=== PATIENT | female | born 1990 ===

== ENCOUNTER 2020-05-03 03:32 | Inpatient (IN) | payer SELFPAY ==
[2020-05-03] MEDS ORDERED: ePHEDrine SULFATE 50 MG/1 ML INJ IV PRN ×2 (05:22→05:23)
[2020-05-03] MEDS ORDERED: TERBUTALINE 1 MG/1 ML INJ SUB-Q PRN (05:23)
[2020-05-03] MEDS ORDERED: MINERAL OIL 30 ML ORAL LIQD PO PRN (05:23)
[2020-05-03] MEDS ORDERED: LIDOCAINE (2%) 20 MG/1 ML VIAL 20 ML MDV INFILTRATI ONE (05:23)
[2020-05-03] MEDS ORDERED: diphenhydrAMINE 25 MG CAP PO PRN (05:24)
[2020-05-03] MEDS ORDERED: LANOLIN/ZINC/DIMETHICONE (LANSINOH) 7 GM TP PRN (05:24)
[2020-05-03] MEDS ORDERED: ONDANSETRON 4 MG/2 ML INJ IV PRN (05:24)
[2020-05-03] MEDS ORDERED: WITCH HAZEL/ GLYCERIN PAD TP PRN (05:24)
[2020-05-03] MEDS ORDERED: PROMETHAZINE 25 MG RECT SUPP PR PRN (05:24)
[2020-05-03] MEDS ORDERED: LACTATED RINGERS 1,000 ML IV SCH ×2 (05:30)
--- NOTE | 2020-05-03 05:30 | History and Physical Report ---
History of Present Illness Date of examination: 05/03/20 Date of admission: 05/03/20 03:32 Chief complaint: intense labor pains History of present illness: States she got care at [facility] and had a uncomplicated course. Past History Past Medical History: no pertinent history Past Surgical History: no surgical history Social history: no significant social history - Obstetrical History Expected Date of Delivery: 05/07/20 Actual Gestation: 39 Week(s) 3 Day(s) : 2 Para: 1 Hx # Term Pregnancies: 1 Number of Living Children: 1 Medications and Allergies Allergies Allergy/AdvReac Type Severity Reaction Status Date / Time No Known Allergies Allergy Verified 05/03/20 05:25 Home Medications Medication Instructions Recorded Confirmed Last Taken Type No Known Home Medications [No 05/03/20 05/03/20 Unknown History Reported Home Medications] Active Meds: Active Medications Ephedrine Sulfate (Ephedrine Sulfate 50 Mg/1 Ml Inj) 10 mg IV Q2M PRN PRN Reason: Hypotension Lactated Ringer's (Lactated Ringers) 1,000 mls @ 125 mls/hr IV DIRECT JANE Oxytocin/Sodium Chloride (Pitocin/Ns 30 Unit/500ml) 30 units in 500 mls @ 2 mls/hr IV TITR JANE; Protocol Lidocaine (Lidocaine (2%) 20 Mg/1 Ml Vial 20 Ml Mdv) 20 ml INFILTRATI ONCE ONE Stop: 05/03/20 05:24 Mineral Oil (Mineral Oil 30 Ml Oral Liqd) 30 ml PO QHS PRN PRN Reason: Constipation Terbutaline Sulfate (Terbutaline 1 Mg/1 Ml Inj) 0.25 mg SUB-Q ONCE PRN PRN Reason: Hyperstimulation/Hypertonicity Review of Systems All systems: negative - Vital Signs Vital signs: Vital Signs Pulse BP 91 H 134/88 05/03/20 04:09 05/03/20 04:09 Temp Pulse Resp BP Pulse Ox 99.5 F 91 H 12 134/88 05/03/20 04:14 05/03/20 04:14 05/03/20 04:14 05/03/20 04:14 - Physical Exam Breasts: Cardiovascular: Regular rate, Normal S1, Normal S2 Abdomen: Positive: normal appearance, soft, normal bowel sounds. Negative: distention, tenderness Vulva: both: normal Vagina: Positive: normal moisture. Negative: discharge Cervix: Negative: lesion, discharge Uterus: Positive: normal size, normal contour Adnexa: both: normal Anus/Rectum: Positive: normal perianal skin, heme negative. Negative: rectal mass, hemorrhoids Extremities: Deep Tendon Reflex Grade: Normal +2 Results All other labs normal. Assessment and Plan A: IUP @ 39 3/7 Weeks Active Labor GBS Unknown P: Admit to L&D Per Routine orders Precipitious Vaginal Delivery upon Arrival to L&D
--- NOTE | 2020-05-03 05:31 | Procedure Note ---
OB Delivery Note - Delivery Date of Delivery: 05/03/20 (0333) Surgeon: NEELIMA GARNER Estimated blood loss: 200cc - Vaginal Delivery presentation: vertex Delivery position: OA Intrapartum events: precipitous labor- <3hr Delivery induction: none Delivery monitor: none Route of delivery: Delivery placenta: spontaneous Episiotomy: none Delivery laceration: none Anesthesia: none Delivery comments: Precipitious vaginal delivery attended by RN upon arrival to L&D. - Infant A at 1 minute: 8 at 5 minutes: 9 Gender: Female (6'2)
[2020-05-03] MEDS ORDERED: OXYTOCIN DRIP 30 UNITS/500 ML BAG IV SCH (06:00)
[2020-05-03 06:46] LABS: Hemoglobin 13.4 gm/dl (10.1-14.3); Mean Corpuscular HGB Conc 33 % (30-34); Mean Corpuscular Volume 87 fl (79-97); Platelet Count 260 K/mm3 (140-440); Red Blood Count 4.74 M/mm3 (3.65-5.03); Red Cell Distribution Width 13.9 % (13.2-15.2)
[2020-05-03] MEDS: IBUPROFEN 600 MG TAB PO SCH ×3 (08:59→23:25)
[2020-05-03 15:59] LABS: Hematocrit 35.4 % (30.3-42.9); Hemoglobin 11.8 gm/dl (10.1-14.3)
[2020-05-03] MEDS ORDERED: hydrALAZINE 20 MG/1 ML INJ IV ONE (15:59)
[2020-05-04] MEDS: IBUPROFEN 600 MG TAB PO SCH ×3 (00:25→22:23)
--- NOTE | 2020-05-04 17:38 | Progress Note ---
Assessment and Plan PPD#1 doing with elevated BP , asymptomatic COVID 19 1. Will check pih labs and start labetalol 100mg bid 2. Maintain isolation with covid 19 3. Routine care Subjective Date of service: 05/04/20 Principal diagnosis: , PPD#1, Covid positive asymptomatic Interval history: pt has no complaints just lying in bed and FOB to bedside. Pt denies pain and vaginal bleeding minimal. Denies dysuria. pt denies headache. Baby in room with patient Objective - Constitutional Vitals: Vital Signs - 12hr 05/04/20 09:16 Temperature 98.5 F Pulse Rate 84 Respiratory 18 Rate Blood Pressure 141/99 [Right] O2 Sat by Pulse 99 Oximetry General appearance: Present: no acute distress - Respiratory Respiratory effort: normal - Breasts Breasts: normal - Cardiovascular Rhythm: regular Extremities: no ischemia - Genitourinary Female genitourinary: other (uterine fundus firm 2cm below the umbilicus) - Labs CBC & Chem 7: 05/03/20 15:36 Medications & Allergies - Medications Allergies/Adverse Reactions: Allergies No Known Allergies Allergy (Verified 05/03/20 05:25) Home Medications: Home Medications Medication Instructions Recorded Confirmed Last Taken Type No Known Home Medications [No 05/03/20 05/03/20 Unknown History Reported Home Medications] Active Medications: Generic Name Dose Route Start Last Admin Trade Name Freq PRN Reason Stop Dose Admin Bisacodyl 10 mg 05/03/20 05:24 Bisacodyl 10 Mg Rect Supp HI BID PRN Constipation Diphenhydramine HCl 25 mg 05/03/20 05:24 Diphenhydramine 25 Mg Cap PO Q6H PRN Itching Oxytocin/Sodium Chloride 30 units in 500 mls @ 2 mls/hr 05/03/20 06:00 Pitocin/Ns 30 Unit/500ml IV TITR JANE Protocol Ibuprofen 600 mg 05/03/20 06:00 05/04/20 06:10 Ibuprofen 600 Mg Tab PO Not Given Q6H JANE Labetalol HCl 100 mg 05/04/20 22:00 Labetalol 100 Mg Tab PO BID JANE Mineral Oil 30 ml 05/03/20 05:23 Mineral Oil 30 Ml Oral Liqd PO QHS PRN Constipation Multi-Ingredient Ointment 1 applic 05/03/20 05:24 05/03/20 13:53 Lanolin/Zinc/Dimethicone (Lansinoh) 7 Gm TP 1 applic PRN PRN Administration Sore Nipples Ondansetron HCl 4 mg 05/03/20 05:24 Ondansetron 4 Mg/2 Ml Inj IV Q8H PRN Nausea And Vomiting Promethazine HCl 25 mg 05/03/20 05:24 Promethazine 25 Mg Rect Supp HI Q6H PRN Nausea And Vomiting Sodium Chloride 10 ml 05/03/20 06:00 Sodium Chloride 0.9% 10 Ml Flush Syringe IV PRN PRN LINE FLUSH Terbutaline Sulfate 0.25 mg 05/03/20 05:23 Terbutaline 1 Mg/1 Ml Inj SUB-Q ONCE PRN Hyperstimulation/Hypertonicity Witch Marcela/Glycerin 1 each 05/03/20 05:24 Witch Marcela/ Glycerin Pad TP PRN PRN Hemorrhoid/cleansing/soothing
[2020-05-04 18:43] LABS: Basophils # (Auto) 0.1 K/mm3 (0.0-0.1); Basophils % (Auto) 0.5 % (0.0-1.8); Eosinophils # (Auto) 0.1 K/mm3 (0.0-0.4); Hematocrit 35.1 % (30.3-42.9); Hemoglobin 11.9 gm/dl (10.1-14.3); Lymphocytes % (Auto) 18.6 % (13.4-35.0); Mean Corpuscular HGB Conc 34 % (30-34); Mean Corpuscular Volume 86 fl (79-97); Monocytes # (Auto) 0.8 K/mm3 (0.0-0.8); Monocytes % (Auto) 7.4 % (0.0-7.3); Platelet Count 207 K/mm3 (140-440); Red Blood Count 4.08 M/mm3 (3.65-5.03); Red Cell Distribution Width 14.1 % (13.2-15.2)
[2020-05-04 18:57] LABS: Alanine Aminotransferase 11 units/L (7-56); Albumin 3.1 g/dL (3.9-5); BUN/Creatinine Ratio 13; Blood Urea Nitrogen 15 mg/dL (7-17); Hemolysis Index 7
[2020-05-05] MEDS: IBUPROFEN 600 MG TAB PO SCH ×2 (01:59→08:24)
--- NOTE | 2020-05-05 12:02 | Progress Note ---
Assessment and Plan A: day 2 S/P . Chronic hypertension, taking oral Labetalol. Asymptomatic coronavirus positive. Elevated creatinine. P: Medical consult (pending). Continue oral Labetalol. Self isolate, coronavirus precautions. Subjective - Subjective Date of service: 05/05/20 Principal diagnosis: , PPD#2, Covid positive asymptomatic; chronic hypertension Interval history: day 2 S/P . Chronic hypertension on oral Labetalol. Creatinine of 1.2. Asymptomatic coronavirus positive. Medical hospitalist consult has been ordered. Patient denies headache, chest pain, cough, or shortness of breath. Patient reports: appetite normal, voiding normally, pain well controlled, flatus, ambulating normally, no dizzy ambulation, no nauseated : doing well Objective - Vital Signs Latest vital signs: Vital Signs Temp Pulse Resp BP BP Pulse Ox 05/05/20 08:23 98.2 F 62 18 157/93 99 05/05/20 08:22 62 157/93 05/05/20 05:00 164/94 05/05/20 01:30 98.4 F 70 18 153/95 97 05/04/20 22:22 86 150/90 05/04/20 18:32 98.2 F 85 18 132/75 99 Intake and Output 05/04/20 05/05/20 05/05/20 23:59 07:59 15:59 Intake Total 1320 120 1 Balance 1320 120 1 Intake: Oral 600 120 1 Intake, Free Water 720 Other: Total, Intake Amount 120 120 1 # Voids Void 4 1 1 - Exam Cardiovascular: Present: Regular rate Lungs: Present: Clear to auscultation Abdomen: Present: normal appearance, soft. Absent: distention, tenderness, guarding, rigidity Uterus: Present: normal, firm, fundal height below umbilicus. Absent: bogginess, tenderness Extremities: Present: normal. Absent: tenderness, edema - Labs Labs: Abnormal lab results 05/04/20 05/04/20 Range/Units 18:22 18:22 Hendry % (Auto) 7.4 H (0.0-7.3) % Seg Neutrophils % 72.5 H (40.0-70.0) % Seg Neutrophils # 7.8 H (1.8-7.7) K/mm3 Sodium 136 L (137-145) mmol/L Carbon Dioxide 19 L (22-30) mmol/L Glucose 132 H (65-100) mg/dL Total Protein 5.9 L (6.3-8.2) g/dL Albumin 3.1 L (3.9-5) g/dL
--- NOTE | 2020-05-05 19:26 | Event Note ---
Date: 05/05/20 BPs elevated. Increased Labetalol dose to 200 mg po BID. Transfer orders to return patient to L&D and start Magnesium Sulfate. Repeat preeclamptic labs ordered. Notified patient's mother baby nurse and L&D charge nurse. Spoke with patient re: this plan of care. Consulted with Dr. Beard re: all of the above and he states he is in agreement with POC. Still awaiting hospitalist consult (ordered by Dr. Nice last night). Nurse states she will follow up re: this.
[2020-05-05] MEDS ORDERED: MAGNESIUM SULFATE 40GM/1000ML 40 GM/1,000 ML BAG IV SCH (20:00)
[2020-05-05 20:15] LABS: Alanine Aminotransferase 13 units/L (7-56); Albumin 3.4 g/dL (3.9-5); BUN/Creatinine Ratio 18; Blood Urea Nitrogen 18 mg/dL (7-17); Calcium 9.1 mg/dL (8.4-10.2); Hemolysis Index 9; Uric Acid 5.7 mg/dL (3.5-7.6)
[2020-05-05] MEDS ORDERED: MAGNESIUM SULFATE 4 GM/100 ML BAG IV ONE (20:17)
[2020-05-05] MEDS ORDERED: LACTATED RINGERS 1,000 ML ONE (20:49)
[2020-05-05] MEDS: hydrALAZINE 20 MG/1 ML INJ IV PRN (21:43)
[2020-05-06] MEDS: HYDROcodone/ACETAMINOPHEN 5-325 MG TAB PO PRN ×3 (08:46→23:41)
[2020-05-06] MEDS ORDERED: LACTATED RINGERS 1,000 ML ONE ×2 (10:56→23:38)
--- NOTE | 2020-05-06 14:15 | Progress Note ---
Assessment and Plan A: day 3 S/P . Chronic hypertension, on oral Labetalol; BPs controlled. Preeclampsia with severe features. Coronavirus positive, asymptomatic. P: Hospitalist MD to see patient as ordered (creatinine of 1.2). Continue magnesium sulfate to complete 24 hours. Continue Labetalol 200 mg po BID for BP control. Continue self isolation for coronavirus positive. Subjective - Subjective Date of service: 05/06/20 Principal diagnosis: , PPD#3, Covid positive asymptomatic; chronic hypertension; preeclampsia Interval history: day 3 S/P . Chronic hypertension on oral Labetalol. Preeclampsia with severe features; on IV magnesium sulfate. Creatinine of 1.2. Asymptomatic coronavirus positive. Medical hospitalist consult has been ordered. Patient reports headache; denies chest pain, cough, or shortness of breath. Patient reports: appetite normal, pain well controlled, flatus, no nauseated : doing well Objective - Vital Signs Latest vital signs: Vital Signs Temp Pulse Resp BP BP Pulse Ox 05/06/20 14:10 15 05/06/20 14:08 84 99 05/06/20 14:03 82 100 05/06/20 13:58 87 100 05/06/20 13:53 77 100 05/06/20 13:48 86 100 05/06/20 13:43 82 129/83 100 05/06/20 13:38 86 99 05/06/20 13:33 87 99 05/06/20 13:28 91 H 99 05/06/20 13:23 87 99 05/06/20 13:18 85 98 05/06/20 13:13 82 118/76 98 05/06/20 13:08 84 98 05/06/20 13:03 83 99 05/06/20 12:58 86 99 05/06/20 12:53 86 99 05/06/20 12:48 84 99 05/06/20 12:43 84 123/76 99 05/06/20 12:38 84 99 05/06/20 12:33 89 99 05/06/20 12:28 84 98 05/06/20 12:23 85 99 05/06/20 12:18 84 99 05/06/20 12:13 82 115/69 98 05/06/20 12:08 88 98 05/06/20 12:03 86 98 02/21/21 11:58 85 98 02/21/21 11:53 86 98 02/21/21 11:48 90 97 02/21/21 11:43 80 112/65 98 02/21/21 11:38 83 97 02/21/21 11:33 84 97 02/21/21 11:28 86 97 02/21/21 11:23 85 97 02/21/21 11:18 88 97 02/21/21 11:13 85 115/68 98 02/21/21 11:08 86 97 02/21 11:03 86 98 02/21/21 10:58 85 98 0221/21 10:53 88 98 02/21/21 10:48 89 98 0221/21 10:43 86 116/66 98 0221/21 10:38 89 97 02/21 10:33 89 97 02/21 10:28 88 97 02/21 10:23 86 97 02/21 10:18 88 97 02/ 10:13 87 118/69 97 02/21 10:08 88 97 02/21 10:03 87 98 02/21 09:58 88 98 02/21 09:53 84 99 02/21 09:48 88 99 02/21 09:45 91 H 127/77 02/21 09:43 91 H 127/77 99 02/21 09:38 90 99 02/21 09:33 99 H 98 0221/21 09:28 101 H 98 02/21 09:23 102 H 98 02/21 09:18 101 H 99 0221/21 09:13 100 H 141/89 99 0221/21 09:08 106 H 99 02/21 09:03 98 H 99 0221/21 08:58 101 H 100 02/21 08:53 93 H 98 0221/21 08:48 96 H 98 0221/21 08:43 83 136/90 99 0221/21 08:38 94 H 99 0221/21 08:33 93 H 98 0221/21 08:32 96 H 94 0221/21 08:30 98.1 F 16 02/21 08:28 98 H 96 02/21/21 08:23 92 H 99 05/06/20 08:18 87 99 05/06/20 08:14 91 H 157/96 05/06/20 08:13 93 H 99 05/06/20 08:08 89 100 05/06/20 08:03 85 99 05/06/20 07:58 83 99 05/06/20 07:53 78 100 05/06/20 07:48 82 99 05/06/20 07:44 80 153/95 05/06/20 07:43 81 99 05/06/20 07:38 85 100 05/06/20 07:33 82 99 05/06/20 07:28 83 100 05/06/20 07:23 83 100 05/06/20 07:18 83 100 05/06/20 07:13 90 136/93 98 05/06/20 07:08 91 H 99 05/06/20 07:03 89 100 05/06/20 06:58 86 99 05/06/20 06:53 94 H 99 05/06/20 06:48 83 98 05/06/20 06:43 91 H 135/87 98 05/06/20 06:38 91 H 97 05/06/20 06:33 94 H 97 05/06/20 06:28 95 H 98 05/06/20 06:23 92 H 98 05/06/20 06:18 88 98 05/06/20 06:13 85 135/79 98 05/06/20 06:08 83 98 05/06/20 06:03 86 98 05/06/20 05:58 84 98 05/06/20 05:53 90 99 05/06/20 05:48 87 98 05/06/20 05:44 97 H 135/81 05/06/20 05:43 94 H 99 05/06/20 05:38 86 98 05/06/20 05:33 88 98 05/06/20 05:28 87 98 05/06/20 05:23 83 98 05/06/20 05:18 85 99 05/06/20 05:13 82 130/77 99 05/06/20 05:08 82 100 05/06/20 05:03 76 100 05/06/20 04:58 79 100 05/06/20 04:53 88 99 05/06/20 04:48 91 H 98 05/06/20 04:43 89 134/81 99 05/06/20 04:38 84 97 05/06/20 04:33 87 100 02 04:28 86 100 05/06/20 04:23 92 H 98 02 04:18 83 99 05/06/20 04:13 80 131/85 99 02 04:08 83 99 05/06/20 04:03 79 99 02 03:58 79 100 05/06/20 03:53 78 99 05/06/20 03:48 83 98 05/06/20 03:44 86 130/86 05/06/20 03:43 87 99 05/06/20 03:38 93 H 99 05/06/20 03:33 94 H 97 05/06/20 03:28 98 H 96 05/06/20 03:23 97 H 97 05/06/20 03:18 89 97 05/06/20 03:13 85 118/70 98 05/06/20 03:08 88 97 05/06/20 03:03 88 97 05/06/20 02:58 85 97 05/06/20 02:53 82 98 05/06/20 02:48 82 98 05/06/20 02:43 79 120/76 98 05/06/20 02:38 83 99 05/06/20 02:33 85 99 05/06/20 02:28 81 99 05/06/20 02:23 82 99 05/06/20 02:18 82 99 05/06/20 02:13 79 135/87 100 05/06/20 02:08 85 99 05/06/20 02:03 87 99 05/06/20 01:58 90 98 05/06/20 01:53 86 99 05/06/20 01:48 81 99 05/06/20 01:43 79 128/80 99 02 01:38 85 99 02 01:33 92 H 99 05/06/20 01:28 88 99 05/06/20 01:23 97 H 99 05/06/20 01:18 93 H 97 05/06/20 01:13 96 H 127/74 97 05/06/20 01:08 90 97 05/06/20 01:03 93 H 97 02/21/21 00:58 90 98 02 00:53 91 H 98 02/21 00:48 89 98 0221 00:43 84 127/78 99 0221 00:38 91 H 99 02 00:33 91 H 99 02/21 00:28 89 99 02 00:23 95 H 98 02 00:18 94 H 99 02 00:13 93 H 139/90 98 02 00:08 86 99 02 00:03 85 99 022021 23:58 91 H 98 0220/21 23:53 94 H 99 0220/21 23:48 92 H 99 022021 23:43 87 141/88 99 022021 23:38 89 99 0220/21 23:33 93 H 99 0221 23:28 89 99 0220/21 23:23 87 99 022021 23:18 91 H 99 0220/21 23:13 83 134/83 99 0220/21 23:08 94 H 99 022021 23:03 91 H 98 0220/21 22:58 89 99 0220/21 22:53 85 99 0220/21 22:48 104 H 99 0220/21 22:44 87 164/96 0220/21 22:43 91 H 99 022021 22:38 101 H 99 0220/21 22:33 94 H 99 022021 22:28 93 H 99 0220/21 22:23 89 99 0220/21 22:18 101 H 99 0220/21 22:13 95 H 99 0220/21 22:12 93 H 128/85 0220/21 22:08 98 H 98 0220/21 22:07 95 H 142/83 0220/21 22:03 95 H 99 0220/21 22:02 95 H 145/87 0220/21 22:00 98.3 F 16 0220/21 21:58 95 H 145/89 99 0220/21 21:53 98 H 99 0220/21 21:52 97 H 164/101 0220/21 21:48 91 H 160/98 98 0220/21 21:43 81 174/104 99 05/05/20 21:31 73 172/104 05/05/20 16:50 98 F 72 18 148/96 99 Intake and Output 05/05/20 05/06/20 05/06/20 23:59 07:59 15:59 Intake Total 840 2020 Output Total 900 2500 1000 Balance -60 -2500 1020 Intake: Oral 480 2020 Intake, Free Water 360 Output: Urine 900 2500 1000 Indwelling Catheter 900 2500 1000 Other: Total, Intake Amount 480 480 Total, Output Amount 600 500 150 # Voids Void 2 - Exam Cardiovascular: Present: Regular rate Lungs: Present: Clear to auscultation Abdomen: Present: normal appearance, soft, normal bowel sounds. Absent: distention, tenderness, guarding, rigidity Uterus: Present: normal, firm, fundal height below umbilicus. Absent: katiana gginess, tenderness Extremities: Present: normal. Absent: tenderness - Labs Labs: Abnormal lab results 05/05/20 05/05/20 05/06/20 Range/Units 19:44 19:44 02:05 BUN 18 H (7-17) mg/dL Magnesium 6.30 H (1.7-2.3) mg/dL Lactate Dehydrogenase 283 H (91-180) units/L Albumin 3.4 L (3.9-5) g/dL 05/06/20 Range/Units 07:52 BUN (7-17) mg/dL Magnesium 7.90 H (1.7-2.3) mg/dL Lactate Dehydrogenase (91-180) units/L Albumin (3.9-5) g/dL
[2020-05-07] MEDS: hydrALAZINE 20 MG/1 ML INJ IV PRN (04:23)
[2020-05-07] MEDS ORDERED: LACTATED RINGERS 1,000 ML IV SCH (07:30)
[2020-05-07 09:05] LABS: Hematocrit 33.6 % (30.3-42.9); Hemoglobin 11.1 gm/dl (10.1-14.3); Mean Corpuscular HGB Conc 33 % (30-34); Mean Corpuscular Volume 86 fl (79-97); Platelet Count 211 K/mm3 (140-440); Red Blood Count 3.92 M/mm3 (3.65-5.03); Red Cell Distribution Width 14.5 % (13.2-15.2)
[2020-05-07 09:22] LABS: Alanine Aminotransferase 30 units/L (7-56); Albumin 2.9 g/dL (3.9-5); Blood Urea Nitrogen 12 mg/dL (7-17); Calcium 7.9 mg/dL (8.4-10.2); Hemolysis Index 16
[2020-05-07 09:23] LABS: BUN/Creatinine Ratio 17
--- NOTE | 2020-05-07 10:21 | Progress Note ---
Assessment and Plan A: S/P Chronic htn with severe preeclampsia Pos Covid 19 P: Continue routine pp care Continue Labetalol as prescribed Procardia 60XL QD Covid 19 prec Pre eclampsia labs repeated today by previous provider Consulted Dr Tamez Subjective - Subjective Date of service: 05/07/20 Principal diagnosis: , PPD#3, Covid positive asymptomatic; chronic hypertension; preeclampsia Patient reports: appetite normal, pain well controlled, other (song in place draining cl yell urine.) : doing well, other (c/o headache) Objective - Vital Signs Latest vital signs: Vital Signs Temp Pulse Resp BP BP Pulse Ox 05/07/20 10:14 87 167/85 05/07/20 10:13 101 H 99 05/07/20 10:08 96 H 99 05/07/20 10:03 94 H 98 05/07/20 10:00 99.6 F 18 05/07/20 09:58 89 98 05/07/20 09:53 88 99 05/07/20 09:48 68 99 05/07/20 09:44 64 142/79 05/07/20 09:43 75 98 05/07/20 09:38 76 98 05/07/20 09:33 81 97 05/07/20 09:28 67 97 05/07/20 09:23 69 98 05/07/20 09:18 68 98 05/07/20 09:14 68 147/86 05/07/20 09:13 79 98 05/07/20 09:08 75 98 05/07/20 09:03 70 99 05/07/20 08:58 69 99 05/07/20 08:53 83 98 05/07/20 08:48 71 99 05/07/20 08:44 77 158/76 05/07/20 08:43 71 98 05/07/20 08:38 75 98 05/07/20 08:33 74 97 05/07/20 08:28 75 98 05/07/20 08:23 68 98 05/07/20 08:18 72 98 05/07/20 08:14 71 136/69 05/07/20 08:13 79 98 05/07/20 08:08 82 98 05/07/20 08:03 80 98 05/07/20 07:58 74 97 05/07/20 07:53 66 97 02/22/21 07:48 64 98 0222/21 07:44 73 148/70 0222/21 07:43 79 98 0222/21 07:38 67 98 0222/21 07:33 84 98 0222/21 07:28 69 98 0222/21 07:23 69 98 05/07/21 07:18 64 98 0222/21 07:14 70 130/70 0222/21 07:13 67 98 02/21 07:08 69 98 02/21 07:03 69 99 0222/21 06:58 67 99 0222/21 06:53 74 99 0222/21 06:48 68 99 02/21 06:44 75 171/94 05/07/21 06:43 77 99 02/21 06:38 72 99 02/21 06:33 77 99 05/07/21 06:28 89 97 05/07/21 06:23 91 H 98 05/07/ 06:18 72 98 05/07/21 06:14 78 154/95 02/21 06:13 81 98 02/21 06:08 76 98 0222/21 06:03 77 97 02/21 05:58 75 97 02/21 05:53 76 97 05/07/21 05:48 80 98 05/07/21 05:44 81 152/83 05/07/21 05:43 81 98 0222/21 05:38 75 97 0222/21 05:33 79 97 0222/21 05:28 79 97 0222/21 05:23 79 98 0222/21 05:18 93 H 98 05/07/21 05:14 81 144/83 02/21 05:13 84 98 0222/21 05:08 72 98 0222/21 05:03 73 98 0222/21 04:58 75 98 0222/21 04:53 77 97 0222/21 04:48 75 98 0222/21 04:44 71 153/76 0222/21 04:43 72 98 0222/21 04:38 77 98 0222/21 04:33 74 98 0222/21 04:32 74 174/91 174/91 0222/21 04:28 72 98 02/21 04:23 72 167/98 99 05/07/21 04:18 65 99 02/21 04:13 70 167/98 99 05/07/20 04:09 98.4 F 65 18 167/100 05/07/21 04:08 65 99 02/ 04:07 71 167/100 05/07/ 04:05 67 184/105 05/07/20 04:03 71 100 05/07/20 03:58 72 98 02 03:53 69 98 05/07/ 03:48 74 98 02/ 03:44 69 154/84 05/07/ 03:43 74 97 05/07/ 03:38 70 98 05/07/ 03:33 72 97 05/07/ 03:28 73 97 05/07/ 03:23 75 97 05/07/ 03:18 74 97 05/07/20 03:14 77 151/84 05/07/20 03:13 81 97 05/07/20 03:08 70 97 05/07/20 03:03 75 97 05/07/20 02:58 81 97 05/07/ 02:53 84 97 05/07/ 02:48 72 97 05/07/20 02:44 80 154/87 05/07/20 02:43 82 97 05/07/ 02:38 71 98 05/07/ 02:33 75 97 05/07/ 02:28 71 97 05/07/20 02:23 75 98 05/07/20 02:18 89 98 05/07/20 02:14 71 147/83 21 02:13 73 98 05/07/ 02:08 73 98 02/ 02:03 78 98 02/21 01:58 74 98 22/21 01:53 77 98 22/21 01:48 79 99 0222/21 01:46 69 156/89 0222/21 01:44 68 160/85 22/21 01:43 73 98 0222/21 01:38 73 99 0222/21 01:33 78 99 0222/21 01:28 79 99 0222/21 01:23 79 98 0222/21 01:18 89 99 05/07/20 01:14 75 165/87 05/07/20 01:13 76 99 05/07/20 01:08 79 98 05/07/20 01:03 79 98 05/07/20 00:58 91 H 98 05/07/20 00:53 82 98 05/07/20 00:48 83 99 05/07/20 00:43 75 131/98 98 05/07/20 00:38 82 98 05/07/20 00:33 89 96 05/07/20 00:28 83 99 05/07/20 00:23 91 H 97 05/07/20 00:18 83 98 05/07/20 00:14 78 152/82 05/07/20 00:13 79 99 05/07/20 00:08 82 99 05/07/20 00:03 85 99 05/06/20 23:58 81 99 05/06/20 23:53 81 98 05/06/20 23:48 79 99 05/06/20 23:43 79 150/94 98 05/06/20 23:41 18 05/06/20 23:38 76 99 05/06/20 23:33 75 158/93 99 05/06/20 23:28 76 99 05/06/20 23:23 90 99 05/06/20 23:18 79 99 05/06/20 23:14 80 165/100 05/06/20 23:13 76 99 05/06/20 23:12 98.4 F 75 18 158/93 05/06/20 23:08 83 99 05/06/20 23:05 81 159/99 05/06/20 23:03 93 H 99 05/06/20 22:58 92 H 97 05/06/20 22:53 91 H 98 02 22:48 95 H 98 02 22:44 91 H 159/99 02 22:43 91 H 98 02 22:38 91 H 98 02 22:33 84 99 05/06/20 22:28 93 H 98 05/06/20 22:23 89 100 02 22:18 86 100 02 22:14 76 151/85 02 22:13 77 98 02/21/21 22:08 77 99 02/21/21 22:03 80 100 02/21/21 21:58 81 99 02/21/21 21:53 73 100 02/21/21 21:48 75 99 02/21/21 21:44 76 168/94 02/21/21 21:43 67 99 02/21/21 21:38 84 100 02/21/21 21:33 80 99 02/21/21 21:28 74 100 02/21/21 21:23 72 99 02/21/21 21:18 91 H 98 02/21/21 21:14 81 148/87 02/21/21 21:13 83 98 02/21/21 21:08 79 99 02/21/21 21:03 83 99 02/21/21 20:58 78 99 02/21/21 20:53 83 98 02/21/21 20:48 81 99 02/21/21 20:43 78 143/87 97 02/21/21 20:38 71 98 02/21/21 20:33 78 99 02/21/21 20:28 78 100 02/21/21 20:23 85 100 02/21/21 20:18 82 99 02/21/21 20:14 83 94 02/21/21 20:13 81 139/73 96 02/21/21 20:08 75 97 02/21/21 20:03 75 97 02/21/21 19:58 82 98 02/21/21 19:53 76 98 02/21/21 19:48 80 98 02/21/21 19:44 78 151/87 94 02/21/21 19:43 79 96 02/21/21 19:38 75 99 02/21/21 19:33 75 99 02/21/21 19:28 74 100 02/21/21 19:23 73 99 02/21/21 19:18 76 99 02/21/21 19:14 74 178/98 02/21/21 19:13 75 98 02/21/21 19:08 77 98 02/21/21 19:03 87 100 02/21/21 18:58 84 98 02/21/21 18:53 78 100 02/21/21 18:48 79 100 02/21/21 18:43 73 141/91 98 02/21/21 18:38 77 99 02/21/21 18:33 74 98 02/21/21 18:28 78 99 02 18:23 77 100 05/06/20 18:18 80 100 05/06/20 18:13 77 136/88 99 05/06/20 18:08 80 99 02 18:03 77 99 05/06/20 17:58 80 99 05/06/20 17:53 73 99 05/06/20 17:48 80 100 05/06/20 17:43 73 141/91 98 05/06/20 17:38 83 99 05/06/20 17:33 82 99 05/06/20 17:28 84 98 05/06/20 17:23 78 100 05/06/20 17:18 77 157/92 100 05/06/20 17:16 73 163/97 05/06/20 17:14 76 163/98 05/06/20 17:13 77 100 05/06/20 17:08 78 100 05/06/20 17:03 73 98 05/06/20 16:58 78 98 05/06/20 16:53 74 99 05/06/20 16:48 73 100 05/06/20 16:43 77 138/88 99 05/06/20 16:38 88 98 05/06/20 16:33 69 99 05/06/20 16:28 71 98 05/06/20 16:23 71 99 05/06/20 16:18 67 99 05/06/20 16:14 70 148/91 05/06/20 16:13 70 99 05/06/20 16:08 70 100 05/06/20 16:03 73 99 05/06/20 15:58 85 98 05/06/20 15:53 83 97 05/06/20 15:48 72 98 05/06/20 15:43 77 142/90 99 05/06/20 15:38 85 98 05/06/20 15:33 88 98 05/06/20 15:28 82 99 05/06/20 15:23 76 99 05/06/20 15:18 83 99 05/06/20 15:14 84 156/89 02 15:13 88 98 05/06/20 15:10 98.1 F 16 05/06/20 15:09 16 05/06/20 15:08 79 99 05/06/20 15:03 79 100 05/06/20 14:58 78 100 05/06/20 14:53 77 146/87 100 02 14:48 74 100 05/06/20 14:44 85 165/103 02 14:43 86 98 05/06/20 14:38 91 H 100 05/06/20 14:33 84 98 05/06/20 14:28 84 100 05/06/20 14:23 84 99 05/06/20 14:18 85 99 02 14:13 80 132/90 99 05/06/20 14:10 15 05/06/20 14:08 84 99 05/06/20 14:03 82 100 05/06/20 13:58 87 100 05/06/20 13:53 77 100 05/06/20 13:48 86 100 05/06/20 13:43 82 129/83 100 05/06/20 13:38 86 99 05/06/20 13:33 87 99 05/06/20 13:28 91 H 99 05/06/20 13:23 87 99 05/06/20 13:18 85 98 05/06/20 13:13 82 118/76 98 05/06/20 13:08 84 98 05/06/20 13:03 83 99 05/06/20 12:58 86 99 05/06/20 12:53 86 99 05/06/20 12:48 84 99 05/06/20 12:43 84 123/76 99 05/06/20 12:38 84 99 05/06/20 12:33 89 99 05/06/20 12:28 84 98 05/06/20 12:23 85 99 05/06/20 12:18 84 99 05/06/20 12:13 82 115/69 98 05/06/20 12:08 88 98 05/06/20 12:03 86 98 02 11:58 85 98 05/06/20 11:53 86 98 02 11:48 90 97 05/06/20 11:43 80 112/65 98 02 11:38 83 97 02 11:33 84 97 02 11:28 86 97 02 11:23 85 97 02 11:18 88 97 02/21 11:13 85 115/68 98 05/06/20 11:08 86 97 05/06/20 11:03 86 98 05/06/20 10:58 85 98 05/06/20 10:53 88 98 05/06/20 10:48 89 98 05/06/20 10:43 86 116/66 98 05/06/20 10:38 89 97 05/06/20 10:33 89 97 05/06/20 10:28 88 97 05/06/20 10:23 86 97 05/06/20 10:18 88 97 Intake and Output 05/06/20 05/07/20 05/07/20 22:59 06:59 14:59 Intake Total 2680 Output Total 1100 1750 Balance 1580 -1750 Intake: Oral 2680 Output: Urine 1100 1750 Indwelling Catheter 1100 1750 Other: Total, Intake Amount 640 Total, Output Amount 400 500 - Exam Breasts: Present: normal Abdomen: Present: normal appearance, soft, normal bowel sounds Vulva: both: normal Uterus: Present: normal, firm, fundal height below umbilicus Extremities: Present: normal - Labs Labs: Abnormal lab results 05/06/20 05/06/20 05/07/20 Range/Units 13:46 19:29 01:27 Calcium (8.4-10.2) mg/dL Magnesium 5.50 H 5.50 H 3.90 H (1.7-2.3) mg/dL Lactate Dehydrogenase (91-180) units/L Total Protein (6.3-8.2) g/dL Albumin (3.9-5) g/dL 05/07/20 Range/Units 08:46 Calcium 7.9 L (8.4-10.2) mg/dL Magnesium (1.7-2.3) mg/dL Lactate Dehydrogenase 266 H (91-180) units/L Total Protein 6.0 L (6.3-8.2) g/dL Albumin 2.9 L (3.9-5) g/dL
[2020-05-07] MEDS ORDERED: ACETAMINOPHEN 325 MG TAB PO SCH (11:00)
--- NOTE | 2020-05-07 11:32 | Event Note ---
Date: 05/07/20 consult redone today with Dr. Warner for refractory HTN and still with atypical presentation of preeclampsia and now creatinine normal. Pt remains with covid with c/o headache only. Dr. Warner states he will see her today.
[2020-05-07] MEDS: NIFEdipine XL 60 MG TAB PO SCH (11:48)
--- NOTE | 2020-05-07 12:04 | Consultation ---
History of Present Illness - Reason for Consult Consult date: 05/07/20 (Notified of consult on 05/07/20) Hypertension Requesting physician: NIGEL SULTANA - History of Present Illness 29 YO Female with Gestational HTN, Severe Preeclampsia S/P . Consult placed for HTN. Patient seen and evaluated in her room. Patient ambulating around her room and in no acute distress. Patient denies fever, chills, chest pain, palpitation, productive cough, skin rash, recent ill contacts. Patient denies history of hypertension. No reported nursing events. Past History Past Medical History: No medical history, other (Reviewed) Past Surgical History: No surgical history, Other (Reviewed) Social history: , lives with family. denies: smoking, alcohol abuse, prescription drug abuse Family history: no significant family history, other (Reviewed) Medications and Allergies Allergies Allergy/AdvReac Type Severity Reaction Status Date / Time No Known Allergies Allergy Verified 05/03/20 05:25 Home Medications Medication Instructions Recorded Confirmed Last Taken Type NIFEdipine [Nifedipine ER] 90 mg PO DAILY #30 tablet.er 05/07/20 Unknown Rx propranoloL [Inderal] 40 mg PO BID #60 tablet 05/07/20 Unknown Rx Active Meds: Active Medications Acetaminophen (Acetaminophen 325 Mg Tab) 650 mg PO ONCE JANE Stop: 05/07/20 15:00 Hydrocodone Bitart/Acetaminophen (Hydrocodone/Acetaminophen 5-325 Mg Tab) 1 each PO Q6H PRN PRN Reason: Pain, Moderate (4-6) Last Admin: 05/06/20 23:41 Dose: 1 each Documented by: Bisacodyl (Bisacodyl 10 Mg Rect Supp) 10 mg DE BID PRN PRN Reason: Constipation Diphenhydramine HCl (Diphenhydramine 25 Mg Cap) 25 mg PO Q6H PRN PRN Reason: Itching Hydralazine HCl (Hydralazine 20 Mg/1 Ml Inj) 5 mg IV Q30MIN PRN PRN Reason: Hypertension Last Admin: 05/07/20 04:23 Dose: 5 mg Documented by: Magnesium Sulfate (Magnesium Sulfate 40gm/1000ml) 40 gm in 1,000 mls @ 50 mls/hr IV DIRECT JANE Last Admin: 05/05/20 21:57 Dose: 2 gm/hr, 50 mls/hr Documented by: Lactated Ringer's (Lactated Ringers) 1,000 mls @ 125 mls/hr IV DIRECT [facility] Labetalol HCl (Labetalol 100 Mg Tab) 100 mg PO BID [facility] Last Admin: 05/07/20 10:29 Dose: 100 mg Documented by: Labetalol HCl (Labetalol 200 Mg Tab) 200 mg PO BID [facility] Last Admin: 05/07/20 10:28 Dose: 200 mg Documented by: Multi-Ingredient Ointment (Lanolin/Zinc/Dimethicone (Lansinoh) 7 Gm) 1 applic TP PRN PRN PRN Reason: Sore Nipples Last Admin: 05/03/20 13:53 Dose: 1 applic Documented by: Nifedipine (Nifedipine Xl 60 Mg Tab) 60 mg PO QDAY [facility] Last Admin: 05/07/20 11:48 Dose: 60 mg Documented by: Sodium Chloride (Sodium Chloride 0.9% 10 Ml Flush Syringe) 10 ml IV PRN PRN PRN Reason: LINE FLUSH Witch Marcela/Glycerin (Witch Marcela/ Glycerin Pad) 1 each TP PRN PRN PRN Reason: Hemorrhoid/cleansing/soothing Review of Systems Constitutional: no weight loss, no weight gain, no chills, no sweats Ears, nose, mouth and throat: no ear pain, no ear discharge, no tinnitis, no nose pain Breasts: no change in shape, no mass Cardiovascular: no chest pain, no palpitations, no rapid/irregular heart beat, no edema, no syncope Respiratory: no cough with sputum, no excessive sputum, no hemoptysis Gastrointestinal: no abdominal pain, no nausea, no diarrhea, no change in bowel habits, no hematemesis Genitourinary Female: no pelvic pain, no flank pain, no dysuria, no urinary frequency Rectal: no pain, no incontinence, no bleeding Musculoskeletal: no neck stiffness, no neck pain, no shooting arm pain, no arm numbness/tingling, no low back pain, no shooting leg pain, no leg numbness/tingling Integumentary: no rash, no pruritis, no sores, no wounds, no boils Neurological: no head injury, no paralysis, no weakness, no parathesias, no syncope, no headaches, no migraines, no convulsions, no change in speech Psychiatric: no anxiety, no memory loss, no change in sleep habits, no sleep disturbances, no insomnia, no hypersomnia Endocrine: no cold intolerance, no heat intolerance, no polydipsia, no polyuria Hematologic/Lymphatic: no easy bruising, no easy bleeding, no lymphadenopathy, no lymphedema Allergic/Immunologic: no urticaria, no allergic rhinitis, no persistent infections, no anaphylaxis Exam - Constitutional Vitals: Temp Pulse Resp BP Pulse Ox 99.6 F 86 18 153/83 99 05/07/20 10:00 05/07/20 11:44 05/07/20 10:00 05/07/20 11:44 05/07/20 10:48 General appearance: Present: mild distress - EENT Eyes: Present: PERRL ENT: hearing intact, clear oral mucosa - Neck Neck: Present: supple, normal ROM - Respiratory Respiratory effort: normal Respiratory: bilateral: CTA - Cardiovascular Heart Sounds: Present: S1 & S2. Absent: rub, click - Extremities Extremities: pulses symmetrical, No edema Peripheral Pulses: within normal limits - Abdominal General gastrointestinal: Present: soft, non-tender, non-distended, normal bowel sounds Female genitourinary: Present: normal - Integumentary Integumentary: Present: clear, warm, dry - Musculoskeletal Musculoskeletal: gait normal, strength equal bilaterally - Psychiatric Psychiatric: appropriate mood/affect, intact judgment & insight - Neurologic Neurologic: CNII-XII intact, moves all extremities Results - Labs CBC & Chem 7: 05/07/20 08:46 05/07/20 08:46 Labs: Abnormal lab results 05/06/20 05/06/20 05/07/20 Range/Units 13:46 19:29 01:27 Calcium (8.4-10.2) mg/dL Magnesium 5.50 H 5.50 H 3.90 H (1.7-2.3) mg/dL Lactate Dehydrogenase (91-180) units/L Total Protein (6.3-8.2) g/dL Albumin (3.9-5) g/dL 05/07/20 Range/Units 08:46 Calcium 7.9 L (8.4-10.2) mg/dL Magnesium (1.7-2.3) mg/dL Lactate Dehydrogenase 266 H (91-180) units/L Total Protein 6.0 L (6.3-8.2) g/dL Albumin 2.9 L (3.9-5) g/dL Assessment and Plan - Patient Problems (1) Hypertension Current Visit: Yes Status: Acute Qualifiers: Hypertension type: essential hypertension Qualified Code(s): I10 - Essential (primary) hypertension Plan to address problem: monitor blood pressure every shift, continue medical management. Will discontinue labetalol and initiate therapy with propanolol as an outpatient due to decreased risk in breast-feeding mother, will also initiate therapy with nifedipine. Recommend blood pressure log 3 times a day and outpatient follow-up with primary care physician within 3 to 5 days for further management and medi cation titration as clinically indicated.
[2020-05-07] MEDS ORDERED: amLODIPine 5 MG TAB PO ONE (14:23)
[2020-05-07] MEDS ORDERED: amLODIPine 5 MG TAB ONE (16:53)
[2020-05-07] MEDS: PROPRANOLOL 40 MG TAB PO SCH (22:43)
[2020-05-07] MEDS: HYDROcodone/ACETAMINOPHEN 5-325 MG TAB PO PRN (22:43)
[2020-05-08] MEDS: HYDROcodone/ACETAMINOPHEN 5-325 MG TAB PO PRN (08:04)
[2020-05-08] MEDS: PROPRANOLOL 40 MG TAB PO SCH ×2 (10:14→11:31)
[2020-05-08] MEDS: NIFEdipine XL 60 MG TAB PO SCH (10:18)
--- NOTE | 2020-05-08 11:43 | Discharge Summary ---
Providers - Providers Date of Admission: 05/03/20 03:32 Date of discharge: 05/08/20 Attending physician: MONIKA BOURNE 05/04/20 19:41 Consult to Physician [CONS] Routine Comment: Consulting Provider: MERLE WILKINS Physician Instructions: Reason For Exam: elevated BP, creatinine 1.2; covid positive (asymp Primary care physician: MONIKA BOURNE Hospitalization Reason for admission: active labor Delivery: Episiotomy: none Laceration: none Other procedures: none complications: other (Pre-Eclampsia) Discharge diagnosis: IUP at term delivered, other (Hypertention) baby: female Hospital course: See admission H & P; OB delivery summary and PP progress notes Condition at discharge: Stable Disposition: DC-01 TO HOME OR SELFCARE - Discharge Diagnoses (1) Status post normal vaginal delivery Status: Acute (2) Hypertension Status: Acute Qualifiers: Hypertension type: essential hypertension Qualified Code(s): I10 - Essen tial (primary) hypertension Plan - Discharge Medications Prescriptions: propranoloL [Inderal] 40 mg PO BID #60 tablet NIFEdipine [Nifedipine ER] 90 mg PO DAILY #30 tablet.er - Provider Discharge Summary Activity: routine, no sex for 6 weeks, no heavy lifting 4 weeks, no strenuous exercise Diet: other (Iron rich diet) Instructions: routine Additional instructions: [] Smoking cessation referral if applicable(refer to patient education folder for contact #) [] Refer to [facility]'s [facility] Booklet Call your doctor immediately for: * Fever > 100.5 * Heavy vaginal bleeding ( >1 pad per hour) * Severe persistent headache * Shortness of breath * Reddened, hot, painful area to leg or breast * Keep B/P log: take B/P three times per day and write results on log to take back to office with you * Follow up at office in 3 days for B/P check, take B/P log to office with you - Follow up plan Follow up: MONIKA BOURNE MD [Primary Care Provider] - 3 Days Forms: [facility] Discharge Summary
[2020-05-08] MEDS ORDERED: hydrALAZINE 25 MG TAB PO SCH (14:00)
--- NOTE | 2020-05-08 15:37 | Progress Note ---
Assessment and Plan Assessment and plan: -- Hypertension Current Visit: Yes Status: Acute Plan to address problem: Patient's blood pressures have moderate control, patient is on Procardia and propranolol, will give 1 dose of 25 mg of hydralazine as Patient's systolic blood pressure was 164, and discharge her on Procardia XL 60 mg daily , propranolol 40 twice daily, and add hydralazine 10 mg tid For close monitoring of blood pressures. Patient is hemodynamically and clinically stable She needs to follow-up with primary care physician in 3 to 5 days medically cleared for discharge. Thank you for this consult I will sign off. History Interval history: I have seen and examined the patient in her room Patient is COVID-19, isolation precautions, PPE protocols followed Patient feels better anxious to go home Blood pressures reasonable level She has no new complaints Vital signs reviewed Hospitalist Physical - Physical exam Narrative exam: Patient is carrying the baby, evaluated from a distance - Constitutional Vitals: Temp Pulse Resp BP Pulse Ox 98.2 F 63 20 145/85 98 05/08/20 12:10 05/08/20 12:10 05/08/20 12:10 05/08/20 14:40 05/08/20 12:10 General appearance: Present: no acute distress, well-nourished, other (Comfortable) - EENT Eyes: Present: PERRL, EOM intact - Neck Neck: Present: supple, normal ROM - Respiratory Respiratory effort: normal Respiratory: bilateral: diminished, negative: rales, rhonchi, wheezing - Cardiovascular Rhythm: regular Heart Sounds: Present: S1 & S2 - Extremities Extremities: no ischemia, No edema - Abdominal General gastrointestinal: soft, non-tender, non-distended, normal bowel sounds - Integumentary Integumentary: Present: clear, warm - Psychiatric Psychiatric: appropriate mood/affect, cooperative - Neurologic Neurologic: CNII-XII intact, moves all extremities Results - Labs CBC & Chem 7: 05/07/20 08:46 05/07/20 08:46 Labs: Laboratory Last Values WBC 6.1 K/mm3 (4.5-11.0) 05/07/20 08:46 RBC 3.92 M/mm3 (3.65-5.03) 05/07/20 08:46 Hgb 11.1 gm/dl (10.1-14.3) 05/07/20 08:46 Hct 33.6 % (30.3-42.9) 05/07/20 08:46 MCV 86 fl (79-97) 05/07/20 08:46 MCH 28 pg (28-32) 05/07/20 08:46 MCHC 33 % (30-34) 05/07/20 08:46 RDW 14.5 % (13.2-15.2) 05/07/20 08:46 Plt Count 211 K/mm3 (140-440) 05/07/20 08:46 Lymph % (Auto) 18.6 % (13.4-35.0) 05/04/20 18:22 [place] % (Auto) 7.4 % (0.0-7.3) H 05/04/20 18:22 Eos % (Auto) 1.0 % (0.0-4.3) 05/04/20 18:22 Baso % (Auto) 0.5 % (0.0-1.8) 05/04/20 18:22 Lymph # (Auto) 2.0 K/mm3 (1.2-5.4) 05/04/20 18:22 [place] # (Auto) 0.8 K/mm3 (0.0-0.8) 05/04/20 18:22 Eos # (Auto) 0.1 K/mm3 (0.0-0.4) 05/04/20 18:22 Baso # (Auto) 0.1 K/mm3 (0.0-0.1) 05/04/20 18:22 Seg Neutrophils % 72.5 % (40.0-70.0) H 05/04/20 18:22 Seg Neutrophils # 7.8 K/mm3 (1.8-7.7) H 05/04/20 18:22 Sodium 139 mmol/L (137-145) 05/07/20 08:46 Potassium 3.7 mmol/L (3.6-5.0) 05/07/20 08:46 Chloride 106.1 mmol/L (98-107) 05/07/20 08:46 Carbon Dioxide 26 mmol/L (22-30) 05/07/20 08:46 Anion Gap 11 mmol/L 05/07/20 08:46 BUN 12 mg/dL (7-17) 05/07/20 08:46 Creatinine 0.7 mg/dL (0.6-1.2) 05/07/20 08:46 Estimated GFR > 60 ml/min 05/07/20 08:46 BUN/Creatinine Ratio 17 % 05/07/20 08:46 Glucose 74 mg/dL (65-100) 05/07/20 08:46 Uric Acid 5.7 mg/dL (3.5-7.6) 05/05/20 19:44 Calcium 7.9 mg/dL (8.4-10.2) L 05/07/20 08:46 Magnesium 3.90 mg/dL (1.7-2.3) H 05/07/20 01:27 Total Bilirubin < 0.20 mg/dL (0.1-1.2) 05/07/20 08:46 AST 28 units/L (5-40) 05/07/20 08:46 ALT 30 units/L (7-56) 05/07/20 08:46 Alkaline Phosphatase 93 units/L (35-129) 05/07/20 08:46 Lactate Dehydrogenase 266 units/L (91-180) H 05/07/20 08:46 Total Protein 6.0 g/dL (6.3-8.2) L 05/07/20 08:46 Albumin 2.9 g/dL (3.9-5) L 05/07/20 08:46 Albumin/Globulin Ratio 0.9 % 05/07/20 08:46 Syphilis IgG Antibody Nonreactive (NonReactive) 05/03/20 03:33 Coronavirus (PCR) Positive (Negative) A 05/03/20 Unknown Blood Type O POSITIVE 05/03/20 03:33 Antibody Screen Negative 05/03/20 03:33 Active Medications - Current Medications Current Medications: Generic Name Dose Route Start Last Admin Trade Name Freq PRN Reason Stop Dose Admin Hydrocodone Bitart/Acetaminophen 1 each 05/06/20 08:00 05/08/20 08:04 Hydrocodone/Acetaminophen 5-325 Mg Tab PO 1 each Q6H PRN Administration Pain, Moderate (4-6) Bisacodyl 10 mg 05/03/20 05:24 Bisacodyl 10 Mg Rect Supp AR BID PRN Constipation Diphenhydramine HCl 25 mg 05/03/20 05:24 Diphenhydramine 25 Mg Cap PO Q6H PRN Itching Hydralazine HCl 5 mg 05/05/20 19:18 05/07/20 04:23 Hydralazine 20 Mg/1 Ml Inj IV 5 mg Q30MIN PRN Administration Hypertension Hydralazine HCl 25 mg 05/08/20 14:00 Hydralazine 25 Mg Tab PO 05/08/20 17:00 ONCE JANE Magnesium Sulfate 40 gm in 1,000 mls @ 50 mls/hr 05/05/20 20:00 05/05/20 21:57 Magnesium Sulfate 40gm/1000ml IV 2 gm/hr DIRECT JANE 50 mls/hr Administration 2 GM/HR Lactated Ringer's 1,000 mls @ 125 mls/hr 05/07/20 07:30 Lactated Ringers IV DIRECT [facility] Multi-Ingredient Ointment 1 applic 05/03/20 05:24 05/03/20 13:53 Lanolin/Zinc/Dimethicone (Lansinoh) 7 Gm TP 1 applic PRN PRN Administration Sore Nipples Nifedipine 60 mg 05/07/20 10:00 05/08/20 10:18 Nifedipine Xl 60 Mg Tab PO 60 mg QDAY JANE Administration Propranolol HCl 40 mg 05/07/20 14:19 05/08/20 11:31 Propranolol 40 Mg Tab PO Not Given Q12HR JANE Sodium Chloride 10 ml 05/03/20 06:00 Sodium Chloride 0.9% 10 Ml Flush Syringe IV PRN PRN LINE FLUSH Witch Marcela/Glycerin 1 each 05/03/20 05:24 Witch Marcela/ Glycerin Pad TP PRN PRN Hemorrhoid/cleansing/soothing
[2020-05-08 16:13] VITALS: BP 147/85
[2020-05-08] MEDS ORDERED: hydrALAZINE 10 MG TAB PO SCH (22:00)
== END 2020-05-08 17:12 | disposition home or self-care (01) | DRG 805 ==
LOC: LD 03:32 → OB 05:16 → LD 05-05 21:01 → OB 05-07 15:21
PROVIDERS: ADMIT Obstetrics & Gynecology; ATTEND Obstetrics & Gynecology
PROC: 10E0XZZ Delivery of Products of Conception, External Approach (ICD-10-PCS; principal; 2020-05-03)
DX: O11.4 Pre-existing hypertension with pre-eclampsia, complicating childbirth (principal); U07.1 COVID-19; Z37.0 Single live birth; O62.3 Precipitate labor; O98.513 Other viral diseases complicating pregnancy, third trimester; Z3A.39 39 weeks gestation of pregnancy
CPT/HCPCS: 36415; 80053; 83615; 83735; 84550; 85014; 85018; 85025; 85027; 85049; 86592; 86850; 86900; 86901; G0378; A6250; J0360; J3475; J7120; U0003